=== PATIENT | female | born 1945 | race Caucasian/White ===

== ENCOUNTER 2023-12-09 17:53 | Emergency (ER) | payer MEDICARE, OTHER, SELFPAY ==
--- NOTE | 2023-12-09 18:10 | ED_ITS ---
<Statement entered by Alice Holly MD - 12/09/23 21:05> I was consulted by the BRADY, and we discussed the complexity of the problems being addressed. I approved the treatment and management plan for this patient's care in the emergency department, thus performing a substantive portion of the medical decision making. Alice Holly MD, SHADY, FACEP Discharge Plan Disposition Patient Disposition: Home, Self-Care Referrals Follow up/Referrals: Damian Aragon, DOORPERSON [Primary Care Provider] - See instructions Carlos Quintero DO [Staff Physician] - See instructions Activity Restrictions/Add. Instructions Additional Instructions/Restrictions: No emergent medical condition identified today. Your creatinine which is your kidney function was 1.6 we do not have a baseline please follow-up closely with a primary care doctor referral has been made to Dr. Carlos Quintero so that you can establish primary care and follow your kidney functioning. You may return to the emergency department with any significant worsening of her symptoms. Clinical Impressions Clinical Impression: Dyspnea, Tachycardia, Kidney disease Discharge ED Provider: Alice Holly General Adult HPI <RAJAT Hill - Last Filed: 12/09/23 20:25> General Chief complaint: Shortness of Breath/Dyspnea Stated complaint: SOA Time Seen by Provider: 12/09/23 18:10 History of Present Illness HPI narrative: Patient presents via EMS initially for chief complaint of shortness of breath. Patient denies chest pain fever chills hemoptysis hematochezia melena nausea vomiting diarrhea but reports feeling having upper respiratory tract symptoms for approximately 5 days including cough that is nonproductive. Patient reports a cardiovascular history including PCI with stents however I have no record of that currently. Related Data Allergies Allergy/AdvReac Type Severity Reaction Status Date / Time codeine [CODEINE] Allergy Severe S-SWELLS-OR Verified 12/09/23 19:37 AL/THROAT lisinopril [LISINOPRIL] Allergy Severe S-SWELLS-OR Verified 12/09/23 19:37 AL/THROAT PFSH <RAJAT Hill - Last Filed: 12/09/23 20:25> [facility] Disclaimer: The information contained in this section may have been updated after the patient was seen, as this information can be updated by other users. Social History Smoking Status: Former smoker alcohol intake: never current occupational status: disabled Travel in the last 8 weeks: None <RAJAT Hill - Last Filed: 12/09/23 20:25> ROS Obtained: Yes Systems reviewed as appropriate & no additional complaints except as documented Physical Exam <RAJAT Hill - Last Filed: 12/09/23 20:25> General General appearance: alert and in no apparent distress Head Head exam: atraumatic and normal inspection Eye Eye exam: Present normal appearance, PERRL and EOMI ENT ENT exam: Present normal exam, normal oropharynx and mucous membranes moist Neck Neck exam: Present normal inspection, full ROM and trachea midline; Absent lymphadenopathy Chest Chest inspection: Present normal inspection and symmetric chest wall rise Respiratory Respiratory exam: Present normal lung sounds bilaterally; Absent respiratory distress, wheezes or accessory muscle use Cardiovascular Cardiovascular exam: Present tachycardia (Sinus), normal heart sounds, +S1 and +S2 Abdominal Exam Abdominal exam: Present soft (Obese) and normal bowel sounds; Absent tenderness, guarding or rebound Extremities Exam Extremities exam: Present normal inspection and full ROM Back Exam Back exam: Present normal inspection and full ROM Neurological Exam Neurological exam: Present alert, oriented X3 and CN II-XII intact Psychiatric Psychiatric exam: Present normal affect and normal mood Skin Skin exam: Present warm, dry and normal color Medical Decision Making <RAJAT Hill - Last Filed: 12/09/23 20:25> Medical Records Medical records reviewed: Yes I reviewed the patient's medical records. Hung Inquiry Pt receiving controlled substance: No Vital Signs: 12/09/23 17:53 Temperature 98.0 F Temperature Source Oral Pulse Rate [Right Radial] 116 H Respiratory Rate 18 Blood Pressure [Right Arm] 147/75 H Blood Pressure Mean [Right Arm] 99 Blood Pressure Source [Right Arm] Automatic Cuff Blood Pressure Position [Right Arm] Sitting 02 Sat by Pulse Oximetry 95 Oxygen Delivery Method Room Air Lab Data Lab results reviewed: Yes I reviewed the patient's lab results. Lab Results 12/09/23 18:00: WBC 5.5, RBC 3.73 L, Hgb 12.3, Hct 37.6, MCV 100.6 H, MCH 32.8 H , MCHC 32.6, RDW 14.6, Plt Count 191, MPV 8.2, Neut % (Auto) 41.5, Lymph % (Auto) 49.1, Bradley % (Auto) 6.3, Eos % (Auto) 2.3, Baso % (Auto) 0.9, Neut # (Auto) 2.3, Lymph # (Auto) 2.7, Bradley # (Auto) 0.3, Eos # (Auto) 0.1, Baso # (Auto) 0.1, D-Dimer 0.35, Sodium 137, Potassium 3.8, Chloride 104, Carbon Dioxide 25, Anion Gap 11.8, BUN 18 H, Creatinine 1.60 H, Estimated Creat Clear 39, Estimated GFR 31 L, Est GFR ( Amer) 38 L, Glucose 111 H, Calcium 9.4, Total Bilirubin 0.3, AST 40 H, ALT 26, Alkaline Phosphatase 69, Troponin I < 0.01, Total Protein 6.9, Albumin 3.7, Globulin 3.2, Albumin/Globulin Ratio 1.2 12/09/23 18:00 12/09/23 18:00 Orders (Tests/Meds): ED MEDICATIONS Generic Name Dose Route Start Last Admin Trade Name Freq PRN Reason Stop Dose Admin Lactated Ringer's 1,000 mls @ 999 mls/hr 12/09/23 19:17 Lactated Ringer's 1000 Ml Bag IV 12/09/23 20:17 .Q1H1M ONE Sodium Chloride 10 ml 12/09/23 18:16 Sodium Chloride 0.9% 10ml Flush Syringe IV 01/08/24 18:15 NEEDED PRN Maintain IV Site ORDERS Category Date Time Status XR chest portable Stat Exams 12/09/23 18:14 Completed Complete Blood Count Auto Diff Stat Lab 12/09/23 18:00 Completed Comprehensive Metabolic Panel Stat Lab 12/09/23 18:00 Completed D-Dimer Stat Lab 12/09/23 18:00 Completed Drug Screen,Urine Stat Lab 12/09/23 18:36 Ordered Troponin I Q3H Lab 12/09/23 21:15 Ordered Troponin I Q3H Lab 12/10/23 00:15 Ordered Troponin I Stat Lab 12/09/23 18:00 Completed Urinalysis and Microscopic Stat Lab 12/09/23 18:36 Ordered HEART Score History (anamnesis): Slightly suspicious ECG: Non-specific disturbance Age: >65 years Risk factors: Atherosclerosis history Medical Decision Narrative: In summary patient is a 78-year-old female who presents to the emergency department for evaluation of shortness of breath. Patient is normotensive tachycardic tachypneic but satting at 95% on room air upon arrival, and afebrile. Physical exam is remarkable for a 78-year-old female who is tachycardic and tachypneic currently but does not appear to be in acute distress. Physical exam is nonfocal and unremarkable other than obesity. Patient states that she was walking back from town and felt like she got winded. Patient also states that she feels like she has had upper respiratory symptoms for approximately 5 days that includes congestion and nonproductive cough. Differential diagnosis includes deconditioning versus COPD exacerbation versus ACS versus PE versus tachyarrhythmia. Initial workup will be conducted with hematologic labs twelve-lead EKG plain from chest x-ray. Initial workup reviewed by me creatinine 1.6 BUN of 18 GFR of 31 remainder of her hematologic labs are unremarkable troponin. My informal interpretation of her plain film chest x-ray shows no acute processes0. Upon repeat evaluation has reported resolution of her symptoms and no further chest pain or shortness of breath. Patient's heart rate is under 110 and sustained.. Given is appropriate for discharge home with instructions to follow-up with PCP or return to ER for any worsening or changing signs or symptoms. <Alice Holly MD - Last Filed: 12/09/23 19:53> Vital Signs: 12/09/23 17:53 Temperature 98.0 F Temperature Source Oral Pulse Rate [Right Radial] 116 H Respiratory Rate 18 Blood Pressure [Right Arm] 147/75 H Blood Pressure Mean [Right Arm] 99 Blood Pressure Source [Right Arm] Automatic Cuff Blood Pressure Position [Right Arm] Sitting 02 Sat by Pulse Oximetry 95 Oxygen Delivery Method Room Air Lab Data Lab Results 12/09/23 18:00: WBC 5.5, RBC 3.73 L, Hgb 12.3, Hct 37.6, MCV 100.6 H, MCH 32.8 H , MCHC 32.6, RDW 14.6, Plt Count 191, MPV 8.2, Neut % (Auto) 41.5, Lymph % (Auto) 49.1, Bradley % (Auto) 6.3, Eos % (Auto) 2.3, Baso % (Auto) 0.9, Neut # (Auto) 2.3, Lymph # (Auto) 2.7, Bradley # (Auto) 0.3, Eos # (Auto) 0.1, Baso # (Auto) 0.1, D-Dimer 0.35, Sodium 137, Potassium 3.8, Chloride 104, Carbon Dioxide 25, Anion Gap 11.8, BUN 18 H, Creatinine 1.60 H, Estimated Creat Clear 39, Estimated GFR 31 L, Est GFR ( Amer) 38 L, Glucose 111 H, Calcium 9.4, Total Bilirubin 0.3, AST 40 H, ALT 26, Alkaline Phosphatase 69, Troponin I < 0.01, Total Protein 6.9, Albumin 3.7, Globulin 3.2, Albumin/Globulin Ratio 1.2 Orders (Tests/Meds): ED MEDICATIONS Generic Name Dose Route Start Last Admin Trade Name Freq PRN Reason Stop Dose Admin Lactated Ringer's 1,000 mls @ 999 mls/hr 12/09/23 19:17 Lactated Ringer's 1000 Ml Bag IV 12/09/23 20:17 .Q1H1M ONE Sodium Chloride 10 ml 12/09/23 18:16 Sodium Chloride 0.9% 10ml Flush Syringe IV 01/08/24 18:15 NEEDED PRN Maintain IV Site ORDERS Category Date Time Status XR chest portable Stat Exams 12/09/23 18:14 Completed Complete Blood Count Auto Diff Stat Lab 12/09/23 18:00 Completed Comprehensive Metabolic Panel Stat Lab 12/09/23 18:00 Completed D-Dimer Stat Lab 12/09/23 18:00 Completed Drug Screen,Urine Stat Lab 12/09/23 18:36 Ordered Troponin I Q3H Lab 12/09/23 21:15 Ordered Troponin I Q3H Lab 12/10/23 00:15 Ordered Troponin I Stat Lab 12/09/23 18:00 Completed Urinalysis and Microscopic Stat Lab 12/09/23 18:36 Ordered ECG Data Tracing #1: I reviewed this ECG and interpreted as documented below: Ventricular rate of 105 sinus tachycardia no acute ischemic changes noted there is a left axis deviation no significant conduction abnormality Critical Care <RAJAT Hill - Last Filed: 12/09/23 20:25> Critical Care Time Critical Care Time: No
--- NOTE | 2023-12-09 18:14 | XR_ITS ---
PROCEDURE INFORMATION: Exam: XR Chest Exam date and time: 12/09/2023 6:18 PM Age: 78 years old Clinical indication: Shortness of breath; Additional info: Shortness of air TECHNIQUE: Imaging protocol: Radiologic exam of the chest. Views: 1 view. COMPARISON: No relevant prior studies available. FINDINGS: Lungs: No consolidation. Pleural spaces: No pleural effusion. No pneumothorax. Heart/Mediastinum: No cardiomegaly. Bones/joints: Unremarkable. IMPRESSION: No acute pulmonary findings.
--- NOTE | 2023-12-09 18:44 | PC.NURSE ---
Addendum entered by Azeb Grubbs RN 02/09/24 15:27: WRONG PATIENT Original Note: Meal provided to patient at this time.
--- NOTE | 2023-12-09 20:03 | PC.NURSE ---
Addendum entered by Azeb Grubbs RN 02/09/24 15:27: WRONG PATIENT Original Note: spoke with eliecer [place] at this time and informed them of pts dc. States they are sending someone to come pick her up
== END 2023-12-09 18:04 | disposition home or self-care (01) ==
PROVIDERS: Emergency Provider Student in an Organized Health Care Education/Training Program
DX: R06.02 Shortness of breath (principal)
CPT/HCPCS: 71045; 80053; 84484; 85025; 85378